=== PATIENT | female | born 1980 | race Caucasian/White ===

== ENCOUNTER → 2020-06-02 | Outpatient (CLI) | payer BC, SELFPAY ==
--- NOTE | 2020-06-02 | EMB_PTH ---
PATIENT: GOLDY CHUN LOC: [facility] U#:[id number] AGE/SX: 40/F ROOM: RE06/02/[address]: Dr. Pablo Goodman MD : 1980 BED: DIS: 06/02/2020 SPEC #: [id number] RECD: 06/02/20 15:43 STATUS: VIRAL ADRIANO #: [id number] DELIA: 06/02/20 00:[address]: Pablo Goodman DEPT: SURGICAL PATHOLOGY RECD BY: Romeo Stubbs Tissues: Endometrium, NOS Procedures: Surgery Specimen Level IV HEADER OPERATION: Endometrial biopsy PRE-OP DIAGNOSIS: N93.0 TISSUE SUBMITTED: Endometrial biopsy MICROSCOPIC DIAGNOSIS Endometrial biopsy: Proliferative endometrium. Fragments of benign endocervical mucosa with squamous metaplasia. SJ:lynda 06/04/20 MICROSCOPIC DESCRIPTION Slides are reviewed. GROSS DESCRIPTION Received is one container labeled with the patient's name and not further designated. The specimen consists of multiple fragments of ji hemorrhagic soft tissue that in aggregate measure 3 x 2.5 x 0.3 cm. The specimen is totally submitted in one cassette. / SJ:rg 06/03/20 TC:4 CPT: 80341
[2020-06-02 15:50] LABS: Hematocrit 35.2 % (37-47); Mean Corp Hgb Conc 28.4 g/dL (32-36); Mean Corpuscular Hgb 20.1 pg (27.0-32.0); Mean Corpuscular Volume 70.8 fL (81-99); Mean Platelet Vol. 11.2 fl (6.2-12.0); Platelet Count 303 K/mm3 (150-450); RBC Distribution Width CV 19.1 % (11.6-14.6); RBC Distribution Width SD 46.4 fl (35.1-43.9); Red Blood Count 4.97 M/mm3 (4.2-5.4); White Blood Count 11.5 K/mm3 (4.4-11.0)
[2020-06-02 15:55] LABS: Anion Gap 2 (5-15); BUN 8 mg/dL (7-18); BUN/Creat Ratio 9.9 RATIO (10-20); Calcium,Total 9.3 mg/dL (8.5-10.1); Chloride 106 mmol/L (98-107); Creatinine, Serum 0.81 mg/dL (0.55-1.02); EST Glomerular Filtration Rate 82 mL/min (>60); Est Glom Filt Rate - Afr Amer 99 mL/min (>60); Glucose 99 mg/dL (74-106); Potassium 4.6 mmol/L (3.5-5.1); Sodium Level 140 mmol/L (136-145)
== END | disposition home or self-care (01) ==
PROVIDERS: Visit Provider Obstetrics & Gynecology
DX: Z01.812 Encounter for preprocedural laboratory examination (principal); N93.9 Abnormal uterine and vaginal bleeding, unspecified
CPT/HCPCS: 80048; 85027; 88305

== ENCOUNTER 2020-07-30 09:12 | Day surgery (SDC) | payer BC, SELFPAY ==
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
[2020-07-30 09:43] LABS: Hematocrit 36.2 % (37-47); Hemoglobin 10.1 g/dL (12.0-15.0); Mean Corp Hgb Conc 27.9 g/dL (32-36); Mean Corpuscular Hgb 19.4 pg (27.0-32.0); Mean Corpuscular Volume 69.6 fL (81-99); Mean Platelet Vol. 10.7 fl (6.2-12.0); Platelet Count 315 K/mm3 (150-450); RBC Distribution Width CV 19.1 % (11.6-14.6); RBC Distribution Width SD 46.5 fl (35.1-43.9); White Blood Count 13.2 K/mm3 (4.4-11.0)
[2020-07-30 09:48] VITALS: BP 127/81; PULSE 84; RESP 16; TEMP 36.5; O2SAT 96; BMI 36.8
[2020-07-30] MEDS: Lactated Ringers 1,000 ML 100 ML IV (10:05)
--- NOTE | 2020-07-30 11:00 | EMB_PTH ---
PATIENT: GOLDY CHUN LOC: [facility] [place] U#:[id number] AGE/SX: 40/F ROOM: RE07/30/[address]: Dr. Pablo Goodman MD : 1980 BED: DIS: 07/30/2020 SPEC #: [id number] RECD: 07/30/20 12:27 STATUS: VIRAL ADRIANO #: [id number] DELIA: 07/30/20 11:[address]: Pablo Goodman DEPT: SURGICAL PATHOLOGY RECD BY: Chester Wiggins ENTERED: 07/30/20 13:39 SP TYPE: ENDOM BX/C OT DR: No Primary Care Phys Tissues: Endometrium, NOS Procedures: Surgery Specimen Level IV HEADER OPERATION: Hysteroscopy, D & C Susan PRE-OP DIAGNOSIS: Abnormal uterine and vaginal bleeding TISSUE SUBMITTED: Endometrial curettings MICROSCOPIC DIAGNOSIS Endometrial curettings: Proliferative endometrium. Fragments of benign ecto- and endocervical mucosa. SJ:lynda 07/31/20 COMMENT Please make reference to previous specimen ([id number]) endometrial biopsy with diagnosis of proliferative endometrium. MICROSCOPIC DESCRIPTION Slides are reviewed. GROSS DESCRIPTION Received in fixative is one container labeled with the patient's name and designated endometrial curettings. The specimen consists of multiple irregular fragments of pink mucoid tissue that in aggregate measure 3 x 2.5 x 0.3 cm. The specimen is totally submitted in one cassette. / SJ:lynda 07/30/20 TC:4 CPT: 82849
--- NOTE | 2020-07-30 11:47 | PCM.OPRPT ---
Report of Operation Date of Procedure: 07/30/20 Pre-Operative Diagnosis: Menorrhagia Post-Operative Diagnosis: Menorrhagia Surgery/Procedure Performed:: Hysteroscopy dilation curettage, endometrial ablation via Susan Description of Surgical Findings:: EBL: 10 cc IV fluids: 500 cc Urine output: 100 cc Complications: None Specimen: Endometrial curettings Findings: Uterus sounded to 12 cm with 5 cm cervical canal. Susan device length set to 6.5 cm. Upon hysteroscopy fundal 2 cm uterine polyp noted removed via curettage sent to pathology. Status post ablation uterine cavity noted to be ablated in its entirety, no new pathology noted. Consent: Patient with menorrhagia found to have submucosal fibroid and enlarged uterus scheduled for hysteroscopy dilation curettage and endometrial ablation via Susan. Discussed in office and preoperatively that failure rate is increased with submucosal fibroid and enlarged uterus. Patient stated understanding wish to proceed. Also discussed risks of but not limited to visceral or vascular injury, prolonged hospitalization, blood and need for transfusion, reoperation. Patient understand and wish to proceed. All questions were answered and consent was signed. Procedure: Patient was brought back to the OR where general anesthesia found to be adequate. Patient was apparent draped in a dorsolithotomy position with yellowfin stirrups. Weighted speculum space and posterior aspect of vagina single-tooth tenaculum used to grasp anterior lip of the cervix. Cervical as used the cervix. Hysteroscope was inserted above findings were noted. Endometrial curettage was performed and sample to be sent to pathology. Susan device with maximum uterine length set to 6.5 cm. Susan endometrial device was inserted deployed and safety test was passed. Susan ablation performed without difficulty. Susan device was removed hysteroscope was reinserted and above findings were noted. Single-tooth tenaculum was removed and good hemostasis was noted at puncture sites. Good hemostasis was noted all counts correct x2. Patient tolerated the procedure well was brought to recovery stable in a condition change management director: Aden Gutierrez Type of Anesthesia:: General
[2020-07-30 11:57] VITALS: BP 127/79; BP 127/81; PULSE 81; RESP 16; TEMP 36; O2SAT 95
[2020-07-30 12:01] VITALS: BP 122/87; BP 127/81; PULSE 76; RESP 16; O2SAT 94
[2020-07-30 12:14] VITALS: BP 122/79; BP 127/81; PULSE 80; RESP 16; O2SAT 99
[2020-07-30 12:15] VITALS: BP 113/83; BP 127/81; PULSE 78; RESP 16; TEMP 36.2; O2SAT 97
--- NOTE | 2020-07-30 12:51 | DCINST_ITS ---
Discharge Diet: No Restrictions Discharge Activity: Return to Normal Activity May resume sexual activity in: 1-2 weeks Weight Bearing Status: Weight bearing as tolerated Call your doctor if your incision/area has: Foul Smelling Discharge Call your doctor if you observe: Fever of 101 or Higher, Shortness of breath, Chest pain Allergies/Adverse Reactions: Allergies No Known Allergies Allergy (Verified 07/08/20 08:57) Medications to take at Discharge Ferrous Sulfate [Iron] 325 mg PO DAILY 07/08/20 Pravastatin [Pravachol] 20 mg PO QHS 07/08/20 Oxycodone [Oxyir] 5 mg PO Q6H PRN PRN 3 Days #12 tab 07/30/20 The following prescriptions were given: Oxycodone [Oxyir] 5 mg PO Q6H PRN PRN 3 Days #12 tab PRN Reason: Pain Score 6-10 Transmission Status: Received by [facility] Primary Care Physician: Care Physician,No Primary [Primary Care Provider] - Test Results: Test results from this visit will be discussed in further detail at your follow- up appointment, if applicable. Please Follow Up With: Pablo Goodman MD When: 2-4 weeks Proposed Discharge Date: 07/30/20
[2020-07-30] MEDS: oxyCODONE 5 MG Tablet PO (12:58)
[2020-07-30 13:27] VITALS: BP 125/72; BP 127/81; PULSE 76; RESP 16; TEMP 36.4; O2SAT 96
== END 2020-07-30 13:34 | disposition home or self-care (01) ==
LOC: SDC 09:13 → AC 09:14
PROVIDERS: Anesthesiology; Referring Provider Obstetrics & Gynecology; Visit Provider Obstetrics & Gynecology
PROC: 0UDB8ZZ Extraction of Endometrium, Via Natural or Artificial Opening Endoscopic (ICD-10-PCS; CPT 58558; principal; 2020-07-30 10:50)
DX: D25.0 Submucous leiomyoma of uterus (principal); N85.8 Other specified noninflammatory disorders of uterus; N92.0 Excessive and frequent menstruation with regular cycle; Z11.59 Encounter for screening for other viral diseases; G25.81 Restless legs syndrome; K58.9 Irritable bowel syndrome, unspecified; D64.9 Anemia, unspecified; E78.00 Pure hypercholesterolemia, unspecified; Z79.899 Other long term (current) drug therapy; F17.200 Nicotine dependence, unspecified, uncomplicated
CPT/HCPCS: 00952; 58563; 36415; 85027; 86850; 86900; 86901; 87635; 88305; C9803; J7120; U0003

== ENCOUNTER → 2020-08-06 | Outpatient (CLI) | payer BC, SELFPAY ==
[2020-07-30 09:48] VITALS: BMI 36.8
[2020-08-06 17:40] LABS: Bacteria 0 SEEN /hpf (None Seen); Red Blood Cells-Urine 0 SEEN /hpf (0-5); White Blood Cells 0 SEEN /hpf (0-5)
[2020-08-06 18:02] LABS: Color, Urine Yellow (Yellow); Glucose, Dipstick Normal (Normal); Ketone-Dipstick Negative (Negative); Leukocyte Esterase-Dipstick Negative /ul (Negative); Nitrite-Dipstick Negative (Negative); Occult Blood-Urine Negative /ul (Negative); Protein-Dipstick 100 mg/dl (Negative); Urine Bilirubin Dipstick Negative (Negative); Urine Clarity Clear (Clear); Urine Urobilinogen Normal (Normal)
[2020-08-06 18:32] LABS: Mucous, Urine RARE /hpf (<or=2+); Squamous Epithelial Cells - UA 0-5 SEEN /hpf (5-10)
== END | disposition home or self-care (01) ==
LOC: LABSPEC 17:36
PROVIDERS: Visit Provider Obstetrics & Gynecology
DX: R39.81 Functional urinary incontinence (principal)
CPT/HCPCS: 81001; 87086; 87088

== ENCOUNTER 2022-01-21 21:03 | Emergency (ER) | payer OTHER, BC, MEDICAID, SELFPAY ==
[2022-01-21 21:04] VITALS: BP 139/89; PULSE 78; RESP 18; TEMP 36.3; O2SAT 96; BMI 35.5
--- NOTE | 2022-01-21 21:24 | RAD_ITS ---
STUDY: X-RAY - RIGHT WRIST REASON FOR EXAM: Female, 41 years old. Trauma TECHNIQUE: 3 view(s) of the wrist were obtained. COMPARISON: None. FINDINGS: Normal visualized distal radius and ulna. Normal radiocarpal articulation. Normal distal radioulnar articulation. Normal carpal bones. Normal carpal articulations. Normal carpometacarpal articulation of the thumb. Normal second through fifth carpometacarpal articulations. Normal visualized metacarpal bones. The soft tissue structures are unremarkable. RAD/Wrist min 3 Views IMPRESSION: Normal x-ray examination of the wrist. Electronically Signed: Irwin Ramos MD at 21:59 EDT ,
--- NOTE | 2022-01-21 21:26 | EDS_ITS ---
HPI History of Present Illness Chief Complaint: Upper Extremity Injury Narrative Narrative: Patient presents with right wrist and hand injury after hitting her radial side of the wrist and hand at work. Apparently she pull to fast center and hit a hard surface. No other injuries. [facility] Medical History Closed fracture of talus of right foot Right ankle sprain Home Medications ferrous sulfate 325 mg PO DAILY 07/08/20 [History Last Taken Unknown] pravastatin 20 mg PO QHS 07/08/20 [History Last Taken Unknown] prednisone 10 mg tablet 10 mg PO .COMPLEX #30 tab 10/14/21 [Rx Last Taken Unknown] naproxen [Naprosyn] 500 mg PO BID #20 tab 01/21/22 [Rx Last Taken Unknown] Allergy/AdvReac Type Severity Reaction Status Date / Time No Known Allergies Allergy Verified 01/21/22 21:06 Family History Other Cancer Multiple sclerosis Surgical History H/O breast biopsy H/O knee surgery H/O shoulder surgery H/O tubal ligation Social History Smoking Status: Current every day smoker tobacco type: cigarettes ROS ROS ED ROS Narrative Past medical history: none Medications: Reviewed Social history: Noncontributory Review of systems: Musculoskeletal: Right hand and wrist pain Skin: No abrasions or lacerations Neurological: No weakness or paresthesias Hematologic: No easy bleeding or easy bruising EXAM Physical Exam Narrative Exam Narrative: Physical exam General: Patient does not appear in significant distress . Head: Normocephalic, Atraumatic Neck: No C-spine tenderness Cardiovascular: Normal distal pulses Back: Nontender, Normal Inspection. Extremities: Patient has tenderness over the radial styloid and proximal part of the first metacarpal region. No obvious tenderness over the scaphoid. Otherwise normal strength and sensations no abrasions or lacerations. Skin: No abrasions, no lacerations Neurological: Normal strength and sensation Const Vital Signs: 01/21/22 21:04 Temperature 97.4 F L Temperature Source Temporal Pulse Rate 78 Respiratory Rate 18 Blood Pressure 139/89 H Blood Pressure Mean 105 Pulse Ox 96 Oxygen Delivery Method Room Air MDM MDM MDM Narrative Medical decision making narrative: Patient is a normal work-up I will place her in a thumb spica splint for comfort and discharged in stable condition Radiography Diagnostic Testing: X-ray of the wrist read by me is negative X-ray of the hand read by me is negative. Discharge Plan Triage Chief Complaint: Upper Extremity Injury ED Provider: Luis Serra Dx/Rx/DC Orders Clinical Impression: Contusion of right wrist, Contusion of hand Instructions: ED Hand Contusion Prescriptions: New naproxen [Naprosyn] 500 mg tablet 500 mg PO BID Qty: 20 RF: 0 No Action prednisone 10 mg tablet 10 mg PO .COMPLEX Qty: 30 RF: 0 ferrous sulfate 325 MG tablet 325 mg PO DAILY RF: 0 pravastatin 20 MG tablet 20 mg PO QHS RF: 0 Primary Care Provider: Ruiz Fernandes Referrals: [facility]] - Care Physician,No Primary [NON-STAFF] - Disposition Disposition: Home, Self Care
--- NOTE | 2022-01-21 21:30 | RAD_ITS ---
STUDY: X-RAY - RIGHT HAND REASON FOR EXAM: Female, 41 years old. Trauma TECHNIQUE: 3 view(s) of the hand. COMPARISON: None. FINDINGS: Normal radiocarpal articulation. Normal distal radioulnar joint. Normal visualized carpal bones. Normal carpal articulations Normal carpometacarpal articulation of the thumb. Normal second through fifth carpometacarpal joints. Normal metacarpi. Normal metacarpophalangeal joint of the thumb. Normal interphalangeal joint of the thumb. Normal proximal and distal phalanges of the thumb. Normal metacarpophalangeal joints of the second through fifth fingers. Normal proximal and distal interphalangeal joints of the second through fifth fingers. Normal phalanges of the second through fifth fingers. The soft tissue structures are unremarkable. RAD/Hand Min 3 Views IMPRESSION: Normal x-ray examination of the hand. Electronically Signed: Irwin Ramos MD at 21:59 EDT ,
[2022-01-21] MEDS: Naproxen 250 MG Tablet 500 MG PO (21:36)
[2022-01-21 22:41] VITALS: BP 138/89; PULSE 78; RESP 18; O2SAT 96
== END 2022-01-21 22:42 | disposition home or self-care (01) ==
LOC: ED 21:40
PROVIDERS: Emergency Provider Emergency Medicine; PCP Family Medicine; Visit Provider Emergency Medicine
DX: S60.211A Contusion of right wrist, initial encounter (principal); F17.210 Nicotine dependence, cigarettes, uncomplicated; S60.221A Contusion of right hand, initial encounter; W22.09XA Striking against other stationary object, initial encounter; Y93.9 Activity, unspecified; Y92.9 Unspecified place or not applicable
CPT/HCPCS: 73110; 73130; 99283